=== PATIENT | male | born 1990 | race Caucasian/White ===

== ENCOUNTER 2018-04-03 22:06 | Emergency (ER) | payer OTHER ==
[~2018-04-03] VITALS: Ht 175.3 cm; Wt 68.0 kg
[2018-04-03 22:17] VITALS: BP 142/107
--- NOTE | 2018-04-03 22:20 | NUR ---
PT AMBULATED TO BED 1 WITH VSS. Addendum: 04/03/18 at 2222 by MED PT AMBULATED TO BED 12 WITH VSS.
--- NOTE | 2018-04-03 22:22 | NUR ---
27/M CAME IN FOR MEDICATION REFILL HYDROMORPHONE AND XANAX. REPORTS ANXIETY BECAUSE HE RAN OUT OF MEDICATIONS. PMH: CHRONIC ANXIETY, CHRONIC PAIN TO BACK/NECK
--- NOTE | 2018-04-03 22:45 | NUR ---
DR MORTENSEN EVALUATING PT AT BEDSIDE
[2018-04-03 22:50] VITALS: BP 140/99
--- NOTE | 2018-04-03 22:50 | NUR ---
PT LEFT DISCHARGE PAPPER WORK AT [facility]. VSS, PT STABLE AT THIS TIME. Patient discharged with v/s stable. Written and verbal after care instructions given and explained. Patient alert, oriented and verbalized understanding of instructions. Ambulatory with steady gait. All questions addressed prior to discharge. ID band removed. Patient advised to follow up with PMD. Rx of IBU given. Patient educated on indication of medication including possible reaction and side effects. Opportunity to ask questions provided and answered.
== END 2018-04-03 22:50 | disposition home or self-care (01) ==
LOC: MED 22:06
DX: G89.29 Other chronic pain (principal); M54.9 Dorsalgia, unspecified; F41.9 Anxiety disorder, unspecified; Z76.5 Malingerer [conscious simulation]; Z76.0 Encounter for issue of repeat prescription
CPT/HCPCS: 99282

== ENCOUNTER 2019-01-06 01:20 | Emergency (ER) | payer OTHER ==
[~2019-01-06] VITALS: Ht 175.3 cm; Wt 68.0 kg
[2019-01-06 01:20] VITALS: BP 136/97
[2019-01-06] MEDS ORDERED: LIDOCAINE 1% ***ER ONLY *** 10 MG/ML VIAL INJ ONE (01:45)
[2019-01-06] MEDS ORDERED: BACITRACIN OINT 500 UNITS/GM PKT TP ONE (01:45)
[2019-01-06] MEDS ORDERED: LIDOCAINE MPF 1% - 5 mL VIAL 5 ML ONE (02:16)
[2019-01-06] MEDS ORDERED: NEOMYCIN/POLYMYXIN/BACITRACIN 0.9 GM/1 PKT TP ONE (02:17)
[2019-01-06] MEDS: NEOMYCIN/POLYMYXIN/BACITRACIN 0.9 GM/1 PKT TP ONE (02:38)
[2019-01-06] MEDS: LIDOCAINE MPF 1% 5mL VIAL INJ ONE (02:38)
[2019-01-06] MEDS: KETOROLAC 60 MG/2 ML VIAL IM ONE (03:01)
[2019-01-06 03:15] VITALS: BP 133/80
== END 2019-01-06 03:15 | disposition home or self-care (01) ==
LOC: MED 01:20
DX: S01.81XA Laceration without foreign body of other part of head, initial encounter (principal); F41.9 Anxiety disorder, unspecified; F10.21 Alcohol dependence, in remission; Z86.69 Personal history of other diseases of the nervous system and sense organs; W18.39XA Other fall on same level, initial encounter; Y93.89 Activity, other specified; Y92.89 Other specified places as the place of occurrence of the external cause; Y99.8 Other external cause status
CPT/HCPCS: 12011; 96372; 99283; J1885; J2001

== ENCOUNTER 2019-01-10 14:29 | Emergency (ER) | payer OTHER ==
[~2019-01-10] VITALS: Ht 177.8 cm; Wt 63.5 kg
--- NOTE | 2019-01-10 14:29 | NUR ---
Patient BIBA BLS, transferred to bed 4. RN evaluating patient at bedside.
[2019-01-10 14:30] VITALS: BP 145/85
--- NOTE | 2019-01-10 14:40 | NUR ---
PT ZAINAB FOUND IN FRONT OF A HOUSE, [place] [employer] CALLED EMS, BYSTANDER CALLED 911 WHEN PT WAS OBSERVED KICKING THE AIR, EMS REPORTS THAT PATIENT WAS AWAKE AND ALERT TALKING WITH PD, WHEN EMS ARRIVED PT REFUSED TO ANSWER QUESTIONS AND NOT FOLLOW COMMANDS. PT'S EYES CLOSED, FLICKERING. PT FOLLOWING COMMANDS, NOT ANSWERING QUESTIONS AT THIS TIME; PT ARRIVED IN 4 POINT RESTRAINTS. EMS STATED "IT WAS PRECAUTIONARY" RESTRAINTS REMOVED AND PT PLACED IN BED 4. VSS. ER TO SEE PT. HX SCHIZOPHRENIA
--- NOTE | 2019-01-10 15:06 | NUR ---
PT TRIED TO URINATE IN URINAL, UNABLE TO DO SO, PT STATED HE NEED WATER, PT PROVIDED WATER, WILL TRY TO OBTAIN URINE SAMPLE LATER
--- NOTE | 2019-01-10 15:20 | NUR ---
Dr. Kimball evaluating patient at bedside.
[2019-01-10] MEDS ORDERED: AMMONIA AROMATIC 1 INHL INH ONE ×2 (15:25→15:36)
[2019-01-10] MEDS ORDERED: NACL 0.9% 1,000 ML IV ONE (15:30)
[2019-01-10 16:07] LABS: BASOPHILS # (AUTO) 0.1 K/uL (0.00-0.22); BASOPHILS % (AUTO) 0.9 % (0.0-2.0); EOSINOPHILS # (AUTO) 0.1 K/uL (0-0.4); EOSINOPHILS % (AUTO) 1.2 % (0.0-4.0); HEMATOCRIT 40.3 % (36-52); HEMOGLOBIN 13.6 g/dL (12.0-18.0); LYMPHOCYTES # (AUTO) 1.8 K/uL (2.0-11.5); LYMPHOCYTES % (AUTO) 23.4 % (20.5-51.1); MEAN CORPUSCULAR HEMOGLOBIN 31 pg (27-31); MEAN CORPUSCULAR HGB CONC 34 g/dL (33-37); MEAN CORPUSCULAR VOLUME 93.4 fL (80-94); MONOCYTES # (AUTO) 0.3 K/uL (0.8-1.0); MONOCYTES % (AUTO) 3.7 % (1.7-9.3); NEUTROPHILS # (AUTO) 5.4 K/uL (1.8-7.7); NEUTROPHILS % (AUTO) 70.8 % (42.2-75.2); PLATELET COUNT (AUTO) 254 K/uL (140-450); RED BLOOD CELL COUNT(AUTO) 4.31 MIL/uL (4.20-6.10); RED CELL DISTRIBUTION WIDTH 13.2 % (11.6-13.7); WHITE BLOOD COUNT (AUTO) 7.6 K/uL (4.8-10.8)
[2019-01-10 16:11] LABS: ALBUMIN 3.8 g/dL (3.4-5.0); ANION GAP 13.1 (8-16); ASPARTATE AMINOTRANSFERASE 21 U/L (15-37); CHLORIDE 107 mmol/L (98-107); CREATININE 0.9 mg/dL (0.7-1.3); GFR ARICAN-AMERICAN 129 mL/min (>90); GLUCOSE 111 mg/dL (74-106); POTASSIUM 4.1 mmol/L (3.5-5.1); SODIUM SERUM 142 mmol/L (136-145); TOTAL BILIRUBIN 0.7 mg/dL (0.0-1.0); UREA NITROGEN, BLOOD 12 mg/dL (7-18)
[2019-01-10 16:16] LABS: ACETAMINOPHEN < 0.5 ug/ml (10-30); SALICYLATE < 2.8 mg/dL (2.8-20.0)
[2019-01-10 16:52] VITALS: BP 124/80
--- NOTE | 2019-01-10 16:53 | NUR ---
PT SITTING UP IN BED,EYES OPEN, ANSWERING QUESTIONS, AAOX4. REPORTS ARTHRITIS PAIN AT 9/10 THROUGHOUT ENTIRE BODY. VSS. PT STATES HE DOES NOT REMEMBER COMMING TO HOSPITAL, ASKED IF HE HAD A PANIC ATTACK, WHEN I ASKED ABOUT PT PAST MEDICAL HISTORY PT ASKED IF WE COULD TALK LATER. Addendum: 01/10/19 at 1712 by AYAAN PT PULLED OUT IV, BLEEDING CONTROLLED WITH GAUZE AND TAPE
--- NOTE | 2019-01-10 17:30 | NUR ---
PT ELOPED FROM FACILITY WITHOUT DISCHARGE INSTRUCTIONS.
[2019-01-10 18:05] LABS: APPEARANCE,URINE CLEAR (CLEAR); BILIRUBIN,URINE NEGATIVE (NEGATIVE); BLOOD, URINE NEGATIVE (NEGATIVE); COLOR,URINE YELLOW (YELLOW); LEUKOCYTE ESTERASE ,URINE NEGATIVE (NEGATIVE); NITRITE, URINE NEGATIVE (NEGATIVE); UGLUCOSE NEGATIVE (NEGATIVE)
[2019-01-10 18:22] LABS: BARBITURATE, URINE NEG. ng/ml (NEG <=200); BENZODIAZEPINE, URINE NEG. ng/mL (NEG <=200); CANNABINOID, URINE POS. ng/mL (NEG <=50); COCAINE, URINE NEG. ng/mL (NEG <=300); OPIATE, URINE NEG. ng/mL (NEG <=2000); PHENCYCLIDINE SCREEN,URINE NEG. ng/mL (NEG <=25)
== END 2019-01-10 17:30 | disposition left against medical advice (07) ==
LOC: MED 14:29
DX: R41.82 Altered mental status, unspecified (principal); F20.9 Schizophrenia, unspecified; Z86.69 Personal history of other diseases of the nervous system and sense organs
CPT/HCPCS: 36415; 70450; 71045; 80053; 80305; 81003; 82550; 85025; 93005; 96360; 99284; C1758; G0480; G0482; J7030; Q0092

== ENCOUNTER 2019-11-03 22:42 | Emergency (ER) | payer MEDICAID, OTHER ==
[~2019-11-03] VITALS: Ht 182.9 cm; Wt 68.0 kg
--- NOTE | 2019-11-03 22:42 | NUR ---
PT ZAINAB BLS TO ER BED 06
[2019-11-03 22:47] VITALS: BP 148/106
--- NOTE | 2019-11-03 22:49 | NUR ---
29 Y/O MALE C/O HEROIN WIDRAWL. A&OX4. HEART SOUND S1S2 PRESENT. LUNG SOUNDS CLEAR ALL THROUGHOUT. DENIES ANY N,V,D,OR FEVER. VSS. NKA. PMH: HEROIN USE.
[2019-11-03] MEDS ORDERED: ONDANSETRON 4 MG ODT PO ONE (23:15)
--- NOTE | 2019-11-03 23:34 | NUR ---
PT REFSUED ZOFRAN AT THIS TIME. ERMD AWARE.
[2019-11-04 00:23] VITALS: BP 134/91
--- NOTE | 2019-11-04 00:23 | NUR ---
Patient given written and verbal discharge instructions and verbalizes understanding. Given copies of tests performed during visit. Patient is awake, alert and oriented. Ambulatory with steady gait. Given list of available shelters in surrounding areas. FOOD, SHEETS, AND RESOURCES GIVEN.
== END 2019-11-04 00:23 | disposition home or self-care (01) ==
LOC: MED 22:42
DX: F11.23 Opioid dependence with withdrawal (principal)
CPT/HCPCS: 99283; Q0162

== ENCOUNTER 2019-12-11 21:45 | Emergency (ER) | payer MEDICAID ==
[~2019-12-11] VITALS: Ht 170.2 cm; Wt 59.0 kg
[2019-12-11 21:47] VITALS: BP 122/87
[2019-12-11] MEDS ORDERED: fentaNYL citrate 0.05 MG/ML VIAL IM ONE (23:05)
== END 2019-12-11 23:18 | disposition home or self-care (01) ==
LOC: MED 21:45
DX: G89.29 Other chronic pain (principal); M79.10 Myalgia, unspecified site
CPT/HCPCS: 96372; 99283; J3010

== ENCOUNTER 2019-12-24 22:22 | Emergency (ER) | payer MEDICAID ==
[~2019-12-24] VITALS: Ht 175.3 cm; Wt 72.6 kg
[2019-12-24 22:22] VITALS: BP 156/113
--- NOTE | 2019-12-24 22:24 | NUR ---
PT BIB PD FOR PREBOOK AND IN CHAIR A
--- NOTE | 2019-12-24 22:30 | NUR ---
PT SITTING QUIETLY AND COOPERATIVELY IN CHAIR. HANDCUFFED BEHIND BACK. PD STANDING BY. REPORTS 8/10 BACK PAIN. NO DEFORMITIES OR OBVIOUS TRAUMA NOTED. NO ACUTE DISTRESS AT THIS TIME.
[2019-12-24 22:45] VITALS: BP 156/113
--- NOTE | 2019-12-24 22:45 | NUR ---
Patient discharged with v/s stable. Written and verbal after care instructions given and explained. Patient verbalized understanding. Escorted by police with steady gait. All questions addressed prior to discharge. Advised to follow up with PMD.
== END 2019-12-24 22:45 ==
LOC: MED 22:22
DX: M54.5 Low back pain (principal); F41.9 Anxiety disorder, unspecified; Z02.89 Encounter for other administrative examinations
CPT/HCPCS: 99283